=== PATIENT | male | born 1980 | race Caucasian/White ===

== ENCOUNTER → 2017-01-20 | Outpatient (CLI) | payer OTHER ==
[~2017-01-20] MED LIST: LEVOTHYROXINE88 MCG PO; PERCOCET10 PO; TOPROL XL 50 MG50 MG PO
--- NOTE | ~2017-01-20 | EE ---
Unit #: [id number] #: [id number] Patient: JAMISON HAMEED [id number] [address] [address] [id number] O MR#: [id number] NAME: JAMISON HAMEED. : 1980 SEX: M STUDY DATE/TIME: 01/20/2017 UNIT: CEEG ROOM: STUDY DESCRIPTION: EEG Attending Physician: Carlos Boo M.D. Referring Physician: Carlos Boo M.D. Primary Care Physician: Mechelle Reid A.P.R.N. NEURODIAGNOSTICS REPORT EXAM EEG REASON FOR THE STUDY Shaky episodes. EEG DESCRIPTION This is an outpatient, digitally recorded multi-montage adult EEG with leads placed according to the International 10-20 System. Hyperventilation was not done but photic stimulation was attempted. With the patient fully aroused, there is 10 Hz and sometimes 10+ Hz posterior background. The patient did become drowsy and later on stage 2 sleep was seen. Hyperventilation was not done. Photic stimulation was attempted in intermittent stepwise pattern up to the flash frequency of 30 Hz but I did not see any driving, asymmetry or paroxysmal activity. No clinical events were seen. Some increased beta activity was seen. IMPRESSION This is essentially a normal adult awake and asleep EEG. There was some beta artifact which could be medication related but otherwise nonspecific. Nothing suggesting seizure or status but an EEG like this does not rule out epilepsy. Clinical correlation is recommended. Dictated by... Pam Castrejon/emanuel TD: 01/20/2017 11:13 JOB #: [id number] Unit #: [id number] #: [id number] Patient: JAMISON HAMEED NEURODIAGNOSTICS REPORT Page 1 of 1 X Wendy Carl MD NEURODIAGNOSTICS REPORT
== END | disposition home or self-care (01) ==
LOC: CEEG 08:40
DX: R25.1 Tremor, unspecified (principal)
CPT/HCPCS: 95816

== ENCOUNTER 2017-05-05 17:08 | Inpatient (IN) | payer OTHER ==
[~2017-05-05] VITALS: Ht 182.9 cm; Wt 120.5 kg
--- NOTE | ~2017-05-05 | CR253 ---
[facility] A Service of [facility] & [facility] RADIOLOGY TEXT RESULTS PATIENT: JAMISON HAMEED LOCATION: [facility] 471- : [birth year] UNIT #: [id number] AGE: [address]: Freeman Cuadra MD SEX: M ORDER DR: [id number] [facility] [address] [facility] [place], [place] [address] [id number] I MR#: [id number] Acc #: [id number] NAME: JAMISON HAMEED. : 1980 SEX: M STUDY DATE/TIME: 05/05/2017 17:38 UNIT: [facility] ROOM: [facility] STUDY DESCRIPTION: CR Tibia and Fibula 2 Views Rt Attending Physician: Freeman Cuadra M.D. Ordering Physician: Felicitas Ruiz P.A.-C. MEDICAL IMAGING REPORT This report is preliminary unless electronic signature is present EXAM Right tibia-fibula series 05/05/2017 HISTORY Trauma. Pain swelling right leg and right ankle, abrasion medial anterior right ankle today, slipped down steps, legs stiff. TECHNIQUE AP and lateral views of the right tibia and fibula are presented. The study reviewed in conjunction with the right ankle series. FINDINGS Mildly comminuted, complete, oblique fracture involving distal third of the shaft of the fibula. The dominant distal fracture fragment is angled slightly medially. There is mild posterior displacement of the dominant distal fracture fragment by about 4-5 mm, better seen on the associated ankle series. There is a coronal oblique fracture involving the posterior distal tibia with fracture plane extension into the medial malleolus. I believe this is a complete fracture. The distal fracture fragment posteriorly is angled posteriorly and minimally displaced posteriorly. At least 1 component of the fracture plane appears on associated lateral ankle view and on the lateral view of this study to enter the posterior aspect of the tibiotalar joint space. No other fractures are seen. The ankle mortise joint remains grossly located. There is extensive soft tissue swelling around the ankle and distal foreleg but no soft tissue defect, subcutaneous air or radiodense foreign body. The knee joint appears intact. Visualized distal femur intact. Dictated by... Rick Castle M.D. [facility] A Service of [facility] & [facility] RADIOLOGY TEXT RESULTS PATIENT: JAMISON HAMEED LOCATION: [place] [address]- : [birth year] UNIT #: [id number] AGE: [address]: Freeman Cuadra MD SEX: M ORDER DR: THIS IS AN ELECTRONICALLY VERIFIED REPORT Rick Castle M.D. at 05/08/2017 7:52 AM LUCIA/mei TD: 05/05/2017 22:33 JOB #: [id number] MEDICAL IMAGING REPORT Page 1 of 1 COPY
--- NOTE | ~2017-05-05 | EKG ---
PATIENT: JAMISON HAMEED UNIT #: [id number] Ventricular Rate: 73 BPM Atrial Rate: 73 BPM P-R Interval: 152 ms QRS Duration: 92 ms Q-T Interval: 360 ms QTC Calculation(Bezet): 396 ms P Cameron: 51 degrees Calculated R Cameron: -3 degrees Calculated T Cameron: 36 degrees Diagnosis Line: Normal sinus rhythm Diagnosis Line: Normal ECG Diagnosis Line: No previous ECGs available Diagnosis Line: Confirmed by DIONE SHAW MD ([id number]) on Diagnosis Line: 05/06/2017 2:00:16 PM INTERPRETING MD: COLIN TUCKER
--- NOTE | ~2017-05-05 | CR21 ---
[facility] A Service of [facility] & [facility] RADIOLOGY TEXT RESULTS PATIENT: JAMISON HAMEED LOCATION: [place] [address]- : [birth year] UNIT #: [id number] AGE: [address]: Freeman Cuadra MD SEX: M ORDER DR: [id number] [facility] [address] [facility] [place], [place] [address] [id number] I MR#: [id number] Acc #: [id number] NAME: JAMISON HAMEED. : 1980 SEX: M STUDY DATE/TIME: 05/05/2017 17:39 UNIT: [facility] ROOM: [facility] STUDY DESCRIPTION: CR Ankle Min 3 Views Rt Attending Physician: Freeman Cuadra M.D. Ordering Physician: Felicitas Ruiz P.A.-C. MEDICAL IMAGING REPORT This report is preliminary unless electronic signature is present EXAM Right ankle series 05/05/2017 HISTORY Trauma. Pain and swelling right leg and ankle. Abrasion on medial anterior right ankle today. Slipped down steps. Right leg stiff. TECHNIQUE AP, lateral and oblique radiographs of the right ankle are presented. FINDINGS Normal bony mineralization. Mildly comminuted, complete oblique fracture distal third of the shaft of the fibula. The dominant distal fracture fragment is displaced posteriorly by about 4-5 mm on the lateral view and shows mild posterior and medial angulation. There is a coronal oblique fracture involving the distal tibial, posterior malleolus and extending obliquely through the medial malleolus. I believe that there is a component of the tibial fracture plane entering the posterior aspect of the tibiotalar joint and probably the medial aspect of the ankle mortise joint. The dominant distal tibial fragment shows mild posterior displacement by approximately 3-4 mm. There is widening of the medial aspect of the ankle mortise joint but the joint remains normally located overall. No other fractures are seen. Extensive soft tissue swelling involving the distal foreleg and ankle, most pronounced at the ankle anteriorly, medially and laterally. There is no soft tissue defect, subcutaneous air or radiodense foreign body. Dictated by... Rick Castle M.D. THIS IS AN ELECTRONICALLY VERIFIED REPORT [facility] A Service of [facility] & [facility] RADIOLOGY TEXT RESULTS PATIENT: JAMISON HAMEED LOCATION: [place] [address]- : [birth year] UNIT #: [id number] AGE: [address]: Freeman Cuadra MD SEX: M ORDER DR: Rick Castle M.D. at 05/08/2017 7:52 AM LUCIA/mei TD: 05/05/2017 22:42 JOB #: [id number] MEDICAL IMAGING REPORT Page 1 of 1 COPY
--- NOTE | ~2017-05-05 | DS ---
Unit #: [id number] #: [id number] Patient: JAMISON HAMEED [id number] [address] [address] [id number] I MR#: [id number] NAME: JAMISON HAMEED ROOM: 471 Age: 37 Sex: M Admission Date: 05/05/2017 : 1980 Discharge Date: 05/07/2017 Attending Physician: Freeman Cuadra M.D. Primary Care Physician: Primary Care Physician No DISCHARGE SUMMARY HOSPITAL COURSE This gentleman was admitted with an ankle fracture and taken to the operating room yesterday where he underwent ORIF and was thought that he would go home after physical therapy yesterday, but after being in physical therapy, he was unable to go home. He did not feel stable and states he feels much better today, so it was felt he can be discharged home and will follow up in the office in about 10 days. He is to remain toe-touch weightbearing. His medications are his routine home medicines plus Percocet 10 for pain. Dictated by... Pam Polanco/pankaj TD: 05/10/2017 05:38 JOB #: [id number] DISCHARGE SUMMARY Page 1 of 1 X Freeman Cuadra MD X DISCHARGE SUMMARY
--- NOTE | ~2017-05-05 | CR18 ---
[facility] A Service of [facility] & [facility] RADIOLOGY TEXT RESULTS PATIENT: JAMISON HAMEED LOCATION: [place] [address] : [birth year] UNIT #: [id number] AGE: [address]: Freeman Cuadra MD SEX: M ORDER DR: [id number] [place] [address] [place], [place] [address] [id number] I MR#: [id number] Acc #: [id number] NAME: JAMISON HAMEED : 1980 SEX: M STUDY DATE/TIME: 05/06/2017 8:36 UNIT: [facility] ROOM: [facility] STUDY DESCRIPTION: CR Ankle 2 Views Rt Attending Physician: Freeman Cuadra M.D. Ordering Physician: Freeman Cuadra M.D. MEDICAL IMAGING REPORT This report is preliminary unless electronic signature is present EXAM Right ankle INDICATIONS ORIF right ankle. Right fracture. FINDINGS 2 views of the right ankle without comparison. There is a lateral buttress plate transfixing the fibular fracture. A syndesmotic screw crosses the distal tibia. Alignment is anatomic. Fluoroscopic time 20 seconds. Dictated by... Brad Briones M.D. THIS IS AN ELECTRONICALLY VERIFIED REPORT Brad Briones M.D. at 05/06/2017 2:18 PM RPC/pcl TD: 05/06/2017 13:05 JOB #: [id number] MEDICAL IMAGING REPORT Page 1 of 1 COPY
--- NOTE | ~2017-05-05 | OR ---
Unit #: [id number] #: [id number] Patient: JAMISON HAMEED [id number] [address] [place], [place] [address] [id number] I MR#: [id number] NAME: JAMISON HAMEED ROOM: 47 Date of Procedure: 05/05/2017 Admission Date: 05/05/2017 Surgeon: Freeman Cuadra M.D. : 1980 Attending Physician: Freeman Cuadra M.D. Primary Care Physician: Primary Care Physician No OPERATIVE REPORT PREOPERATIVE DIAGNOSIS Bimalleolar equivalent fracture, right ankle. POSTOPERATIVE DIAGNOSIS Bimalleolar equivalent fracture, right ankle. PROCEDURE PERFORMED Open reduction and internal fixation of the fibula fracture with placement of syndesmotic screw. ANESTHESIA General. ESTIMATED BLOOD LOSS 50 mL. DESCRIPTION OF PROCEDURE The patient was brought to the operating room, given 2 g of Kefzol. He then was brought back to the operating room, given a general anesthetic. Tourniquet placed around the right thigh. The right leg was prepped and draped. Tourniquet inflated to 300. A straight long lateral skin incision was made. The subcutaneous dissected away and a fibula fracture was identified. It was reduced and held in place with a clamp. We then elected to use a 10 hole one-third semitubular plate from [employer]. This was positioned and the C-arm showed it was positioned appropriately. We then placed the 3.5 cortical screws through the plate under C-arm control. The last screw we positioned was the second from most distal screw. This was a 60 mm 3.5 cortical screw that was used as a syndesmotic screw. This was positioned with the foot in dorsiflexion. C-arm showed that the mortise was reduced. The patient then had the tourniquet released. Hemostasis obtained. The wound was irrigated with bacitracin solution, closed with 0 and 2-0 Vicryl and gladys in the skin. A 5 x 30 posterior splint was positioned after sterile dressing applied. His general anesthetic reversed. Dictated by... Pam Polanco/pankaj Unit #: [id number] #: [id number] Patient: JAMISON HAMEED TD: 05/07/2017 05:53 JOB #: [id number] OPERATIVE REPORT Page 1 of 1 X Freeman Cuadra MD PROCEDURE OPERATIVE NOTE
--- NOTE | ~2017-05-05 | DS ---
Unit #: [id number] #: [id number] Patient: JAMISON HAMEED [id number] [address] [address] [id number] I MR#: [id number] NAME: JAMISON HAMEED ROOM: 471 Age: 37 Sex: M Admission Date: 05/05/2017 : 1980 Discharge Date: 05/07/2017 Attending Physician: Freeman Cuadra M.D. Primary Care Physician: No Primary Care Physician DISCHARGE SUMMARY ADMITTING DIAGNOSIS Right ankle fracture. HISTORY OF PRESENT ILLNESS This is a 37-year-old gentleman who was admitted for a right ankle fracture, subsequently taken to the OR on the morning of 05/06/2017 where he underwent ORIF postoperatively. He has been with physical therapy, tolerated this well. He will be on crutches, toe touch weight bearing. He is on his routine home medicines, which was metoprolol and levothyroxine, as well as Percocet 10 for pain. He is to keep his ankle elevated and iced and remain toe touch weight bearing and followup in the office about ten days. Dictated by... Pam Polanco/lynette TD: 05/09/2017 12:40 JOB #: [id number] DISCHARGE SUMMARY Page 1 of 1 X Freeman Cuadra MD X DISCHARGE SUMMARY
--- NOTE | ~2017-05-05 | HP ---
Unit #: [id number] #: [id number] Patient: JAMISON HAMEED [id number] [place] [address] [facility]. [place], [place] [address] [id number] I MR#: [id number] NAME: JAMISON HAMEED ROOM: 47 Age: 37 Sex: M Admission Date: 05/05/2017 : 1980 Attending Physician: Freeman Cuadra M.D. Primary Care Physician: No Primary Care Physician HISTORY AND PHYSICAL HISTORY OF PRESENT ILLNESS This is a 37-year-old gentleman who was walking down his back deck stairs. he got to the bottom step and it had been raining and it was slippery and he slipped and fell off the step and his ankle twisted and he landed. He felt a pop and was unable to walk. He was brought to the emergency room. His x-rays showed he had a lateral malleolus fracture with widening of the mortise. He is admitted to the hospital for surgical treatment of his right ankle fracture. PAST MEDICAL HISTORY He is a fairly healthy gentleman. He does have a history of hypertension and hypothyroidism. PAST SURGICAL HISTORY His only previous surgery is a tonsillectomy. SOCIAL HISTORY He denies the use of tobacco but he does occasionally drink alcohol. ALLERGIES He has no known drug allergies. MEDICATIONS 1. Metoprolol. 2. Levothyroxine. PHYSICAL EXAMINATION GENERAL APPEARANCE: He is alert, awake, oriented x3. He answers questions appropriately. VITAL SIGNS: Pulse 72. Blood pressure 155/84 and he is afebrile. HEENT: His pupils are equal, round and reactive. Extraocular movements are full. Throat is not injected. NECK: Supple. HEART: Regular rate. No large gallops, murmurs. LUNGS: Clear. ABDOMEN: Benign. Positive bowel sounds. No rebound. EXTREMITIES: Orthopaedically, his upper extremities move well. The left lower extremity moves well. His right lower extremity is in a posterior splint. Neurovascular exam is intact. DIAGNOSTIC STUDIES IMAGING: X-rays are reviewed and it shows a lateral malleolus fracture with widening of the mortise. Unit #: [id number] #: [id number] Patient: JAMISON HAMEED INDICATIONS He will be admitted to the hospital and we will plan surgical treatment for tomorrow. Dictated by Pam Polanco/ricky TD: 05/06/2017 11:10 JOB #: [id number] HISTORY AND PHYSICAL Page 1 of 1 X Freeman Cuadra MD X HISTORY AND PHYSICAL
[2017-05-05 19:40] LABS: BASOPHIL# 0.1 X10e3 (0-0.3); BASOPHIL% 0.5 % (0-2.5); EOSINOPHIL# 0.2 X10e3 (0-0.7); EOSINOPHIL% 1.1 % (0.0-7.0); HEMATOCRIT 49.3 % (38.0-50.0); HEMOGLOBIN 16.9 gm/dL (13.0-16.0); LYMPHOCYTE# 1.8 X10e3 (1.0-3.5); LYMPHOCYTE% 12.1 % (17.0-45.0); MEAN CELL VOLUME 86.1 FL (83-96); MEAN CORPUSCULAR HEMOGLOBIN 29.5 PG (28-34); MEAN CORPUSCULAR HGB CONC 34.2 g/dL (30-36); MEAN PLATELET VOLUME 7.6 FL (6.5-11.5); MONOCYTE% 6.3 % (3.0-12.0); NEUTROPHIL# 12.1 X10e3 (1.5-7.1); PLATELET COUNT 297 X10e3 (140-420); RED BLOOD COUNT 5.73 X10e (3.90-5.60); RED CELL DISTRIBUTION WIDTH 14.6 % (11.0-15.5); WHITE BLOOD COUNT 15.1 X10e3 (4.0-10.5)
[2017-05-05 19:51] LABS: DIFF IND YES
[2017-05-05 20:03] LABS: BUN/CREATININE RATIO 13.57; CALCIUM SERUM 9.1 mg/dL (8.4-10.2); CREATININE SERUM 1.4 mg/dL (0.6-1.4); GLOM FILT RATE Estimated 62.9 mL/min (>60); POTASSIUM 3.9 mmol/L (3.5-5.1)
[2017-05-05 20:07] LABS: ANISOCYTOSIS SL; PLATELET ESTIMATE NORMAL (NORMAL)
[2017-05-05] MEDS ORDERED: LEVOTHYROXINE88 MCG PO (22:11)
[2017-05-05] MEDS ORDERED: TOPROL XL 50 MG50 MG PO (22:11)
[2017-05-07] MEDS ORDERED: PERCOCET10 PO (10:53)
== END 2017-05-07 11:41 | disposition home or self-care (01) | DRG 494 ==
LOC: CFTX 17:08 → CED 17:08 → CFTX 18:14 → CEDOF 18:50 → CED 18:50 → CEDOF 18:54 → C4C 20:15 → CEDOF 20:15 → C4C 05-07 11:41
PROVIDERS: Physician Assistant
PROC: 0QHJ04Z Insertion of Internal Fixation Device into Right Fibula, Open Approach (ICD-10-PCS; principal; 2017-05-05)
DX: S82.841A Displaced bimalleolar fracture of right lower leg, initial encounter for closed fracture (principal); I10 Essential (primary) hypertension; W01.0XXA Fall on same level from slipping, tripping and stumbling without subsequent striking against object, initial encounter; Y93.9 Activity, unspecified; Y92.008 Other place in unspecified non-institutional (private) residence as the place of occurrence of the external cause; E03.9 Hypothyroidism, unspecified
CPT/HCPCS: 29505; 73590; 73600; 73610; 76000; 80048; 85025; 93005; 96374; 96375; 97116; 97161; 99284; C1713; G8978-GP; G8979-GP; G8980-GP; J0690; J1170; J2250; J2270; J2405; J2795; J3010